=== PATIENT | male | born 1970 | race Caucasian/White ===

== ENCOUNTER 2018-09-02 11:49 | Emergency (ER) | payer MEDICAID ==
[~2018-09-02] VITALS: Ht 167.6 cm; Wt 124.0 kg
[2018-09-02] MEDS ORDERED: MAGNESIUM/ALUMINUM HYDROXIDE/SIMETHICONE 30ML UDC PO STA (13:59)
[2018-09-02] MEDS ORDERED: FAMOTIDINE 20MG TABLET PO ONE (14:00)
[2018-09-02] MEDS ORDERED: ACETAMINOPHEN 325MG TABLET PO ONE (14:00)
[2018-09-02] MEDS ORDERED: ONDANSETRON 4MG ODT PO ONE (14:00)
[2018-09-02 14:26] LABS: BASOPHILS % 0.8 % (0.0-2.0); EOSINOPHILS % 4.4 % (0.0-5.0); HEMATOCRIT. 43.1 % (42.0-52.0); HEMOGLOBIN. 14.1 g/dL (14.0-18.0); LYMPHOCYTES % 18.2 % (20.0-50.0); MEAN CORPUSCULAR HEMOGLOBIN 25.1 pg (28.0-32.0); MEAN CORPUSCULAR VOLUME 76.7 fL (80.0-94.0); MEAN PLATELET VOLUME 8.4 fl (7.4-10.4); MONOCYTES % 9.1 % (2.0-8.0); NEUTROPHILS % 67.5 % (40.0-76.0); PLATELET 219 x1000/uL (130-400); RED BLOOD CELL COUNT 5.62 mill/uL (4.7-6.1); RED CELL DISTRIBUTION WIDTH 15.2 % (11.6-14.6)
[2018-09-02 14:31] LABS: CHLORIDE 103 mEq/L (98-107)
[2018-09-02 16:30] VITALS: BP 180/105
== END 2018-09-02 16:45 | disposition home or self-care (01) ==
LOC: ER 11:49
DX: R10.13 Epigastric pain (principal); I10 Essential (primary) hypertension; R11.2 Nausea with vomiting, unspecified; R19.7 Diarrhea, unspecified; K59.00 Constipation, unspecified; Z98.890 Other specified postprocedural states
CPT/HCPCS: 36415; 80053; 83690; 85025; 99284; Q0162

== ENCOUNTER 2019-08-01 14:37 | Inpatient (IN) | payer OTHER ==
[~2019-08-01] VITALS: Ht 172.7 cm; Wt 131.1 kg
[~2019-08-01 14:37] MED LIST: CLON-457 PO; FURO-152 MT; HYDR12.54 PO; METO100T16 PO
[2019-08-01] MEDS ORDERED: FUROSEMIDE 100MG/10ML VIAL IVP ONE (17:00)
[2019-08-01] MEDS ORDERED: ASPIRIN 81MG TABLET PO ONE (17:00)
[2019-08-01] MEDS ORDERED: NITROGLYCERIN OINT 1GM/INCH UDPKT TD ONE (17:00)
[2019-08-01 17:30] LABS: HEMATOCRIT. 40.6 % (42.0-52.0); HEMOGLOBIN. 13.1 g/dL (14.0-18.0); MEAN CORPUSCULAR HEMOGLOBIN 24.8 pg (28.0-32.0); MEAN CORPUSCULAR VOLUME 76.6 fL (80.0-94.0); MEAN PLATELET VOLUME 8.1 fl (7.4-10.4); PLATELET 284 x1000/uL (130-400); RED CELL DISTRIBUTION WIDTH 17.1 % (11.6-14.6)
[2019-08-01 17:49] LABS: PROTHROMBIN TIME 10.6 sec (9.6-11.0)
[2019-08-01 19:04] LABS: CHLORIDE 103 mEq/L (98-107)
[2019-08-01] MEDS ORDERED: IPRATROPIUM/ALBUTEROL 0.5-3(2.5)MG/3ML NEB HHN PRN (19:30)
[2019-08-01] MEDS ORDERED: NIFEDIPINE XL 60MG TAB PO NR (19:30)
[2019-08-01] MEDS ORDERED: MAGNESIUM/ALUMINUM HYDROXIDE/SIMETHICONE 30ML UDC PO PRN (19:30)
[2019-08-01] MEDS ORDERED: CLONIDINE 0.1MG TABLET PO PRN (19:30)
[2019-08-01] MEDS ORDERED: ACETAMINOPHEN 325MG TABLET PO PRN ×2 (19:30)
[2019-08-01] MEDS ORDERED: DIPHENHYDRAMINE 50MG/ML VIAL IV PRN (19:30)
[2019-08-01] MEDS ORDERED: ONDANSETRON HCL 4MG/2ML INJ IV PRN (19:30)
[2019-08-01] MEDS ORDERED: HYDRALAZINE 20MG/ML VIAL IV PRN (19:30)
[2019-08-01] MEDS ORDERED: GUAIFENESIN 200MG/10ML SUGAR FREE UDC PO PRN (19:30)
[2019-08-01 19:45] LABS: PLATELET ESTIMATE NORMAL
[2019-08-01] MEDS ORDERED: ZOLPIDEM TARTRATE 5MG TABLET PO PRN (21:00)
[2019-08-01] MEDS: ENOXAPARIN 40MG/0.4ML SYR SUBCUT SCH (21:50)
[2019-08-01] MEDS: LISINOPRIL 20MG TABLET PO SCH (21:50)
[2019-08-01] MEDS: SODIUM CHLORIDE 0.9% INJ 3ML FLUSH IVF SCH (21:53)
[2019-08-02] VITALS: BP 174/101
[2019-08-02] MEDS ORDERED: METOLAZONE 10MG TABLET PO SCH (01:00)
[2019-08-02] MEDS: CLONIDINE 0.1MG TABLET PO PRN ×2 (01:34→17:55)
[2019-08-02 04:00] VITALS: BP 165/89
[2019-08-02] MEDS: SODIUM CHLORIDE 0.9% INJ 3ML FLUSH IVF SCH ×3 (06:12→21:47)
[2019-08-02 08:00] VITALS: BP 132/62
[2019-08-02] MEDS ORDERED: FUROSEMIDE 40MG/4ML VIAL IVP SCH (09:00)
[2019-08-02] MEDS: NIFEDIPINE XL 60MG TAB PO SCH (09:16)
[2019-08-02] MEDS: LISINOPRIL 20MG TABLET PO SCH ×2 (09:16→21:23)
[2019-08-02] MEDS: ENOXAPARIN 40MG/0.4ML SYR SUBCUT SCH ×2 (09:16→21:23)
[2019-08-02] MEDS: POTASSIUM CHLORIDE 20MEQ TABLET SR PO SCH (09:18)
[2019-08-02] MEDS ORDERED: PNEUMOCOCCAL 23-VAL P-SAC VAC 0.5 ML IM ONE (12:00)
[2019-08-02 16:00] VITALS: BP 142/101
[2019-08-02] MEDS: FUROSEMIDE 40MG/4ML VIAL IVP SCH (17:56)
[2019-08-02 20:00] VITALS: BP 150/84
[2019-08-02 23:51] LABS: *AMPHETAMINES SCREEN URINE NEGATIVE (NEGATIVE); *BARBITURATES SCREEN URINE NEGATIVE (NEGATIVE); *BENZODIAZEPINES SCREEN URINE NEGATIVE (NEGATIVE); *COCAINE SCREEN URINE NEGATIVE (NEGATIVE); METHADONE URINE SCREEN NEGATIVE (NEGATIVE)
[2019-08-02 23:52] LABS: CANNABINOID URINE SCREEN NEGATIVE (NEGATIVE); OPIATES URINE SCREEN NEGATIVE (NEGATIVE); PHENCYCLIDINE URINE SCREEN NEGATIVE (NEGATIVE)
[2019-08-03] VITALS: BP 121/86
[2019-08-03 04:00] VITALS: BP 142/87
[2019-08-03] MEDS: FUROSEMIDE 40MG/4ML VIAL IVP SCH ×2 (05:58→18:31)
[2019-08-03] MEDS: SODIUM CHLORIDE 0.9% INJ 3ML FLUSH IVF SCH ×3 (06:19→21:04)
[2019-08-03 06:37] LABS: BASOPHILS % 0.5 % (0.0-2.0); EOSINOPHILS % 1.9 % (0.0-5.0); HEMATOCRIT. 43.5 % (42.0-52.0); HEMOGLOBIN. 14.3 g/dL (14.0-18.0); LYMPHOCYTES % 16.6 % (20.0-50.0); MEAN CORPUSCULAR HEMOGLOBIN 24.7 pg (28.0-32.0); MEAN CORPUSCULAR VOLUME 74.8 fL (80.0-94.0); MEAN PLATELET VOLUME 7.6 fl (7.4-10.4); MONOCYTES % 9.8 % (2.0-8.0); NEUTROPHILS % 71.2 % (40.0-76.0); PLATELET 372 x1000/uL (130-400); RED BLOOD CELL COUNT 5.81 mill/uL (4.7-6.1); RED CELL DISTRIBUTION WIDTH 16.9 % (11.6-14.6)
[2019-08-03 06:52] LABS: CHLORIDE 92 mEq/L (98-107)
[2019-08-03 06:58] LABS: PHOSPHORUS 4.8 mg/dL (2.5-4.9)
[2019-08-03 08:00] VITALS: BP 132/81
[2019-08-03] MEDS: NIFEDIPINE XL 60MG TAB PO SCH (08:26)
[2019-08-03] MEDS: LISINOPRIL 20MG TABLET PO SCH ×2 (08:26→21:04)
[2019-08-03] MEDS: POTASSIUM CHLORIDE 20MEQ TABLET SR PO SCH (08:27)
[2019-08-03] MEDS: ENOXAPARIN 40MG/0.4ML SYR SUBCUT SCH ×2 (08:27→21:03)
[2019-08-03] MEDS ORDERED: POTASSIUM CHLORIDE 20MEQ TABLET SR PO NR ×2 (08:45→14:00)
[2019-08-03 10:04] LABS: T4 FREE 1.43 ng/dL (0.76-1.46)
[2019-08-03] MEDS ORDERED: POTASSIUM CHLORIDE INJ 40 MEQ in DEXT 5% WATER 250 ML IV NR (11:00)
[2019-08-03 12:00] VITALS: BP 124/85
[2019-08-03] MEDS ORDERED: POTASSIUM CHLORIDE 20MEQ TABLET SR PO SCH (12:00)
[2019-08-03 16:00] VITALS: BP 120/77
[2019-08-03 16:02] LABS: CREATINE KINASE 62 IU/L (39-308)
[2019-08-03 16:04] LABS: CREATINE KINASE MB FRACTION < 1.0 ng/mL (0.5-3.6)
[2019-08-03 20:00] VITALS: BP 127/75
[2019-08-03 23:35] LABS: CREATINE KINASE 65 IU/L (39-308)
[2019-08-03 23:37] LABS: CREATINE KINASE MB FRACTION < 1.0 ng/mL (0.5-3.6)
[2019-08-04] VITALS: BP 129/72
[2019-08-04 04:00] VITALS: BP 131/88
[2019-08-04] MEDS: SODIUM CHLORIDE 0.9% INJ 3ML FLUSH IVF SCH ×2 (06:06→13:10)
[2019-08-04] MEDS: FUROSEMIDE 40MG/4ML VIAL IVP SCH (06:07)
[2019-08-04 07:42] LABS: CHLORIDE 96 mEq/L (98-107)
[2019-08-04 07:50] LABS: CREATINE KINASE 47 IU/L (39-308)
[2019-08-04 07:52] LABS: CREATINE KINASE MB FRACTION < 1.0 ng/mL (0.5-3.6)
[2019-08-04 08:00] VITALS: BP 129/90
[2019-08-04] MEDS: NIFEDIPINE XL 60MG TAB PO SCH (08:30)
[2019-08-04] MEDS: ENOXAPARIN 40MG/0.4ML SYR SUBCUT SCH (08:30)
[2019-08-04] MEDS: POTASSIUM CHLORIDE 20MEQ TABLET SR PO SCH (08:30)
[2019-08-04] MEDS: LISINOPRIL 20MG TABLET PO SCH (08:31)
[2019-08-04] MEDS ORDERED: POTASSIUM CHLORIDE INJ 40 MEQ in DEXT 5% WATER 250 ML IV SCH (10:00)
[2019-08-04 12:00] VITALS: BP 132/72
[2019-08-04] MEDS ORDERED: POTASSIUM CHLORIDE 20MEQ TABLET SR PO NR (13:00)
[2019-08-04 14:12] VITALS: BP 132/72
== END 2019-08-04 15:35 | disposition home or self-care (01) | DRG 291 ==
LOC: ER 14:37 → 5WST 17:52 → EDBEDREQ 22:41 → ENRESERV 22:43 → ER 23:30
PROVIDERS: ADMIT Internal Medicine; ATTEND Internal Medicine
PROC: 5A09357 Assistance with Respiratory Ventilation, Less than 24 Consecutive Hours, Continuous Positive Airway Pressure (ICD-10-PCS; principal; 2019-08-02)
DX: I11.0 Hypertensive heart disease with heart failure (principal); J96.00 Acute respiratory failure, unspecified whether with hypoxia or hypercapnia; E46 Unspecified protein-calorie malnutrition; R65.10 Systemic inflammatory response syndrome (SIRS) of non-infectious origin without acute organ dysfunction; Z68.43 Body mass index [BMI] 50.0-59.9, adult; Z68.41 Body mass index [BMI] 40.0-44.9, adult; I50.23 Acute on chronic systolic (congestive) heart failure; E66.01 Morbid (severe) obesity due to excess calories; E87.6 Hypokalemia; G47.30 Sleep apnea, unspecified; D72.829 Elevated white blood cell count, unspecified; J45.909 Unspecified asthma, uncomplicated; Z79.899 Other long term (current) drug therapy; Z82.49 Family history of ischemic heart disease and other diseases of the circulatory system
CPT/HCPCS: 36415; 71045; 80048; 80053; 80061; 80305; 82550; 82553; 83036; 83735; 83880; 84100; 84439; 84443; 84484; 85025; 85379; 93005; 93306; 99291; J0360; J1650; J1940; J3480; J7060

== ENCOUNTER 2021-04-07 16:53 | Inpatient (IN) | payer OTHER ==
[~2021-04-07] VITALS: Ht 172.7 cm; Wt 138.9 kg
[2021-04-07] MEDS ORDERED: NITROGLYCERIN OINT 1GM/INCH UDPKT TD ONE (17:45)
[2021-04-07] MEDS ORDERED: FUROSEMIDE 40MG/4ML VIAL IV ONE (17:45)
[2021-04-07] MEDS ORDERED: ASPIRIN 81MG TABLET PO ONE (17:45)
[2021-04-07 18:06] LABS: BASOPHILS % 0.8 % (0.0-2.0); EOSINOPHILS % 2.4 % (0.0-5.0); HEMATOCRIT. 40.4 % (42.0-52.0); HEMOGLOBIN. 12.9 g/dL (14.0-18.0); LYMPHOCYTES % 14.4 % (20.0-50.0); MEAN CORPUSCULAR HEMOGLOBIN 23.9 pg (28.0-32.0); MEAN CORPUSCULAR VOLUME 75.2 fL (80.0-94.0); MEAN PLATELET VOLUME 7.9 fl (7.4-10.4); MONOCYTES % 9.3 % (2.0-8.0); NEUTROPHILS % 73.1 % (40.0-76.0); PLATELET 239 x1000/uL (130-400); RED BLOOD CELL COUNT 5.38 mill/uL (4.7-6.1); RED CELL DISTRIBUTION WIDTH 15.9 % (11.6-14.6)
[2021-04-07 18:14] LABS: CHLORIDE 99 mEq/L (98-107)
[2021-04-07] MEDS ORDERED: DOCUSATE SODIUM 100MG CAPSULE PO PRN (22:00)
[2021-04-07] MEDS ORDERED: NITROGLYCERIN 0.4MG TABLET SL SL PRN (22:00)
[2021-04-07] MEDS ORDERED: IPRATROPIUM/ALBUTEROL 0.5-3(2.5)MG/3ML NEB NEB PRN (22:00)
[2021-04-07] MEDS ORDERED: GUAIFENESIN 200MG/10ML SUGAR FREE UDC PO PRN (22:00)
[2021-04-07] MEDS ORDERED: ACETAMINOPHEN 325MG TABLET PO PRN (22:00)
[2021-04-07] MEDS: ENOXAPARIN 40MG/0.4ML SYR SUBCUT SCH (23:02)
[2021-04-07 23:07] LABS: ETHANOL BLOOD < 10 mg/dL
[2021-04-07 23:09] LABS: TOTAL IRON BINDING CAPACITY 323 ug/dL (250-450)
[2021-04-07 23:10] LABS: CREATINE KINASE 75 IU/L (39-308); LDL CHOLESTEROL 124 mg/dL (5-100)
[2021-04-07 23:11] LABS: CREATINE KINASE MB FRACTION < 1.0 ng/mL (0.5-3.6); HDL CHOLESTEROL 36 mg/dL (40-59)
[2021-04-07 23:23] LABS: FOLIC ACID (FOLATE) SERUM 8.5 ng/mL (>5.38)
[2021-04-08 05:50] LABS: BASOPHILS % 0.2 % (0.0-2.0); EOSINOPHILS % 3.3 % (0.0-5.0); HEMATOCRIT. 38.2 % (42.0-52.0); HEMOGLOBIN. 12.3 g/dL (14.0-18.0); LYMPHOCYTES % 18.8 % (20.0-50.0); MEAN CORPUSCULAR VOLUME 74.5 fL (80.0-94.0); MEAN PLATELET VOLUME 7.7 fl (7.4-10.4); MONOCYTES % 11.8 % (2.0-8.0); NEUTROPHILS % 65.9 % (40.0-76.0); PLATELET 227 x1000/uL (130-400); RED BLOOD CELL COUNT 5.14 mill/uL (4.7-6.1); RED CELL DISTRIBUTION WIDTH 15.5 % (11.6-14.6)
[2021-04-08 06:06] LABS: CHLORIDE 100 mEq/L (98-107)
[2021-04-08 06:11] LABS: PHOSPHORUS 3.8 mg/dL (2.5-4.9)
[2021-04-08 06:13] LABS: CREATINE KINASE 64 IU/L (39-308)
[2021-04-08 06:16] LABS: CREATINE KINASE MB FRACTION < 1.0 ng/mL (0.5-3.6)
[2021-04-08] MEDS: CARVEDILOL 3.125 MG TABLET PO SCH ×2 (06:25→17:46)
[2021-04-08 08:18] LABS: *AMPHETAMINES SCREEN URINE NEGATIVE (NEGATIVE); *BARBITURATES SCREEN URINE NEGATIVE (NEGATIVE); *BENZODIAZEPINES SCREEN URINE NEGATIVE (NEGATIVE); *COCAINE SCREEN URINE NEGATIVE (NEGATIVE)
[2021-04-08 08:19] LABS: CANNABINOID URINE SCREEN NEGATIVE (NEGATIVE); OPIATES URINE SCREEN NEGATIVE (NEGATIVE); PHENCYCLIDINE URINE SCREEN NEGATIVE (NEGATIVE)
[2021-04-08] MEDS: FUROSEMIDE 40MG/4ML VIAL IVP SCH ×2 (09:26→20:56)
[2021-04-08] MEDS: ASPIRIN 325MG EC TABLET PO SCH (09:29)
[2021-04-08] MEDS: FAMOTIDINE 20MG TABLET PO SCH ×2 (09:29→20:57)
[2021-04-08] MEDS: ASCORBIC ACID 500 MG TABLET PO SCH ×2 (09:29→20:57)
[2021-04-08 12:05] VITALS: BP 174/110
[2021-04-08] MEDS: ZINC SULFATE 220 MG ( 50 ) CAPSULE PO SCH (12:20)
[2021-04-08] MEDS: SPIRONOLACTONE 25MG TABLET PO SCH ×2 (12:20→20:57)
[2021-04-08] MEDS: CHOLECALCIFEROL (D3) 1000 UNIT TABLET PO SCH (12:20)
[2021-04-08] MEDS: CLONIDINE 0.1MG TABLET PO PRN ×2 (12:21→18:52)
[2021-04-08] MEDS: LISINOPRIL 20MG TABLET PO SCH ×2 (12:21→20:57)
[2021-04-08] MEDS: ENOXAPARIN 40MG/0.4ML SYR SUBCUT SCH ×2 (12:59→20:58)
[2021-04-08 13:46] VITALS: BP 174/110
[2021-04-08] MEDS ORDERED: CLON-457 MT (14:25)
[2021-04-08] MEDS ORDERED: POTA20TA82 MT (14:25)
[2021-04-08] MEDS ORDERED: LISI20TA31 MT (14:25)
[2021-04-08] MEDS ORDERED: NIFE-32 PO (14:25)
[2021-04-08] MEDS ORDERED: METO100T16 MT (14:25)
[2021-04-08] MEDS ORDERED: FURO80TA87 PO (14:25)
[2021-04-08 16:00] VITALS: BP 168/101
[2021-04-08 20:00] VITALS: BP 168/101
[2021-04-09] VITALS: BP 170/104
[2021-04-09 04:00] VITALS: BP 174/99
[2021-04-09] MEDS: CARVEDILOL 3.125 MG TABLET PO SCH ×2 (05:26→17:56)
[2021-04-09] MEDS: CLONIDINE 0.1MG TABLET PO PRN ×4 (05:27→22:28)
[2021-04-09 08:00] VITALS: BP 179/113
[2021-04-09] MEDS: CHOLECALCIFEROL (D3) 1000 UNIT TABLET PO SCH (09:40)
[2021-04-09] MEDS: ZINC SULFATE 220 MG ( 50 ) CAPSULE PO SCH (09:40)
[2021-04-09] MEDS: FUROSEMIDE 40MG/4ML VIAL IVP SCH ×2 (09:40→21:20)
[2021-04-09] MEDS: FAMOTIDINE 20MG TABLET PO SCH ×3 (09:41→21:18)
[2021-04-09] MEDS: LISINOPRIL 20MG TABLET PO SCH ×2 (09:41→21:19)
[2021-04-09] MEDS: ASPIRIN 325MG EC TABLET PO SCH (09:41)
[2021-04-09] MEDS: ASCORBIC ACID 500 MG TABLET PO SCH ×2 (09:41→21:18)
[2021-04-09] MEDS: ENOXAPARIN 40MG/0.4ML SYR SUBCUT SCH ×2 (09:49→21:18)
[2021-04-09] MEDS: SPIRONOLACTONE 25MG TABLET PO SCH ×2 (09:50→21:19)
[2021-04-09 12:00] VITALS: BP 177/103
[2021-04-09 16:00] VITALS: BP 171/105
[2021-04-09] MEDS: ONDANSETRON HCL 4MG/2ML INJ IV PRN (17:56)
[2021-04-09 20:00] VITALS: BP 192/123
[2021-04-09] MEDS ORDERED: NA PHOS,M-B/NA PHOS,DI-BA ENEMA 118ML PR NR (20:15)
[2021-04-09] MEDS: ZOLPIDEM TARTRATE 5MG TABLET PO PRN (21:20)
[2021-04-09] MEDS: ACETAMINOPHEN 325MG TABLET PO PRN (21:36)
[2021-04-09 22:05] LABS: METHADONE URINE SCREEN NEGATIVE (NEGATIVE)
[2021-04-10] VITALS: BP 201/123
[2021-04-10 04:00] VITALS: BP 167/137
[2021-04-10] MEDS: CARVEDILOL 3.125 MG TABLET PO SCH ×2 (06:50→18:03)
[2021-04-10 08:00] VITALS: BP 150/88
[2021-04-10] MEDS: FUROSEMIDE 40MG/4ML VIAL IVP SCH ×2 (09:48→21:14)
[2021-04-10] MEDS: FAMOTIDINE 20MG TABLET PO SCH ×2 (09:50→21:13)
[2021-04-10] MEDS: LISINOPRIL 20MG TABLET PO SCH ×2 (09:50→21:14)
[2021-04-10] MEDS: SPIRONOLACTONE 25MG TABLET PO SCH ×2 (09:50→21:13)
[2021-04-10] MEDS: ENOXAPARIN 40MG/0.4ML SYR SUBCUT SCH ×2 (09:50→21:14)
[2021-04-10] MEDS: ASPIRIN 325MG EC TABLET PO SCH (09:50)
[2021-04-10 12:00] VITALS: BP 141/53
[2021-04-10 13:15] LABS: BASOPHILS % 0.2 % (0.0-2.0); EOSINOPHILS % 1.7 % (0.0-5.0); LYMPHOCYTES % 10.5 % (20.0-50.0); MEAN CORPUSCULAR HEMOGLOBIN 24.4 pg (28.0-32.0); MEAN CORPUSCULAR VOLUME 75.2 fL (80.0-94.0); MEAN PLATELET VOLUME 8.3 fl (7.4-10.4); NEUTROPHILS % 79.6 % (40.0-76.0); PLATELET 287 x1000/uL (130-400); RED BLOOD CELL COUNT 5.87 mill/uL (4.7-6.1); RED CELL DISTRIBUTION WIDTH 15.5 % (11.6-14.6)
[2021-04-10] MEDS ORDERED: IOHEXOL-300 100 ML BOTTLE ONE ×2 (13:26→15:20)
[2021-04-10 13:38] LABS: HEMATOCRIT. 44.1 % (42.0-52.0); HEMOGLOBIN. 14.3 g/dL (14.0-18.0)
[2021-04-10 13:50] LABS: CHLORIDE 97 mEq/L (98-107)
[2021-04-10] MEDS: ZINC SULFATE 220 MG ( 50 ) CAPSULE PO SCH (14:04)
[2021-04-10] MEDS: CHOLECALCIFEROL (D3) 1000 UNIT TABLET PO SCH (14:04)
[2021-04-10] MEDS: ASCORBIC ACID 500 MG TABLET PO SCH ×2 (14:04→21:13)
[2021-04-10 16:00] VITALS: BP 174/110
[2021-04-10] MEDS: ONDANSETRON HCL 4MG/2ML INJ IV PRN (16:13)
[2021-04-10] MEDS: ACETAMINOPHEN 325MG TABLET PO PRN ×2 (16:14→21:19)
[2021-04-10] MEDS: CLONIDINE 0.1MG TABLET PO PRN (16:15)
[2021-04-10 20:00] VITALS: BP 173/98
[2021-04-10] MEDS: ZOLPIDEM TARTRATE 5MG TABLET PO PRN (21:13)
[2021-04-11] VITALS (7 sets, daily range): BP systolic 119–191; BP diastolic 85–114
[2021-04-11] MEDS: CARVEDILOL 3.125 MG TABLET PO SCH ×2 (05:07→18:04)
[2021-04-11] MEDS: ACETAMINOPHEN 325MG TABLET PO PRN (10:09)
[2021-04-11] MEDS: LISINOPRIL 20MG TABLET PO SCH ×2 (10:10→21:17)
[2021-04-11] MEDS: FAMOTIDINE 20MG TABLET PO SCH ×2 (10:10→21:17)
[2021-04-11] MEDS: ENOXAPARIN 40MG/0.4ML SYR SUBCUT SCH ×2 (10:11→21:17)
[2021-04-11] MEDS: CHOLECALCIFEROL (D3) 1000 UNIT TABLET PO SCH (10:11)
[2021-04-11] MEDS: ASCORBIC ACID 500 MG TABLET PO SCH ×2 (10:11→21:18)
[2021-04-11] MEDS: ONDANSETRON HCL 4MG/2ML INJ IV PRN (10:12)
[2021-04-11] MEDS: FUROSEMIDE 40MG/4ML VIAL IVP SCH ×2 (10:12→21:17)
[2021-04-11] MEDS: SPIRONOLACTONE 25MG TABLET PO SCH ×2 (10:12→21:17)
[2021-04-11] MEDS: ASPIRIN 325MG EC TABLET PO SCH (10:15)
[2021-04-11] MEDS: ZINC SULFATE 220 MG ( 50 ) CAPSULE PO SCH (10:15)
[2021-04-11] MEDS: MAGNESIUM/ALUMINUM HYDROXIDE/SIMETHICONE 30ML UDC PO PRN ×2 (12:15→18:04)
[2021-04-11] MEDS: CLONIDINE 0.1MG TABLET PO PRN (12:15)
[2021-04-12] VITALS: BP 140/93
[2021-04-12 04:00] VITALS: BP 156/100
[2021-04-12] MEDS: CARVEDILOL 3.125 MG TABLET PO SCH (05:24)
[2021-04-12 08:00] VITALS: BP 158/88
[2021-04-12] MEDS: ASPIRIN 325MG EC TABLET PO SCH (09:32)
[2021-04-12] MEDS: CHOLECALCIFEROL (D3) 1000 UNIT TABLET PO SCH (09:33)
[2021-04-12] MEDS: LISINOPRIL 20MG TABLET PO SCH (09:33)
[2021-04-12] MEDS: FAMOTIDINE 20MG TABLET PO SCH (09:33)
[2021-04-12] MEDS: ASCORBIC ACID 500 MG TABLET PO SCH (09:33)
[2021-04-12] MEDS: ZINC SULFATE 220 MG ( 50 ) CAPSULE PO SCH (09:33)
[2021-04-12] MEDS: ENOXAPARIN 40MG/0.4ML SYR SUBCUT SCH (09:34)
[2021-04-12] MEDS: FUROSEMIDE 40MG/4ML VIAL IVP SCH (09:34)
[2021-04-12] MEDS: SPIRONOLACTONE 25MG TABLET PO SCH (09:34)
[2021-04-12 12:00] VITALS: BP 166/108
[2021-04-12 17:01] VITALS: BP 158/88
== END 2021-04-12 16:35 | disposition home or self-care (01) | DRG 194 ==
LOC: ER 17:04 → EDBEDREQ 17:53 → MICUSO 20:37 → EDBEDREQ 20:44 → EDBEDREQTM 20:44 → 8WST 04-08 11:13
PROVIDERS: ADMIT Internal Medicine; ATTEND Internal Medicine
DX: I11.0 Hypertensive heart disease with heart failure (principal); N17.0 Acute kidney failure with tubular necrosis; E44.1 Mild protein-calorie malnutrition; E83.51 Hypocalcemia; D63.8 Anemia in other chronic diseases classified elsewhere; I16.1 Hypertensive emergency; J44.9 Chronic obstructive pulmonary disease, unspecified; E66.9 Obesity, unspecified; I25.10 Atherosclerotic heart disease of native coronary artery without angina pectoris; Z20.822 Contact with and (suspected) exposure to COVID-19; Z79.899 Other long term (current) drug therapy; Z68.42 Body mass index [BMI] 45.0-49.9, adult; I50.33 Acute on chronic diastolic (congestive) heart failure
CPT/HCPCS: 36415; 71045; 74177; 80053; 80061; 80305; 80320; 82550; 82553; 82607; 82746; 83036; 83540; 83550; 83735; 83880; 84100; 84443; 84484; 85025; 87426; 93005; 93306; 93970; 94660; 99285; J1650; J1940; J2405; Q9967; G0480

== ENCOUNTER 2021-04-18 14:31 | Inpatient (IN) | payer OTHER, MEDICAID ==
[~2021-04-18] VITALS: Ht 172.7 cm; Wt 133.4 kg
[~2021-04-18 14:31] MED LIST changes: +CLON-457 MT; -CLON-457 PO; -FURO-152 MT; +FURO80TA87 PO; -HYDR12.54 PO; +LISI20TA31 MT; +METO100T16 MT; -METO100T16 PO; +NIFE-32 PO; +POTA20TA82 MT
[2021-04-18 17:28] LABS: BASOPHILS % 0.4 % (0.0-2.0); EOSINOPHILS % 1.4 % (0.0-5.0); HEMATOCRIT. 41.1 % (42.0-52.0); HEMOGLOBIN. 13.6 g/dL (14.0-18.0); LYMPHOCYTES % 13.5 % (20.0-50.0); MEAN CORPUSCULAR HEMOGLOBIN 24.7 pg (28.0-32.0); MEAN CORPUSCULAR VOLUME 74.6 fL (80.0-94.0); MONOCYTES % 8.6 % (2.0-8.0); NEUTROPHILS % 76.1 % (40.0-76.0); PLATELET 270 x1000/uL (130-400); RED BLOOD CELL COUNT 5.51 mill/uL (4.7-6.1); RED CELL DISTRIBUTION WIDTH 15.4 % (11.6-14.6)
[2021-04-18 17:33] LABS: CHLORIDE 98 mEq/L (98-107)
[2021-04-18] MEDS ORDERED: FUROSEMIDE 40MG/4ML VIAL IV ONE (20:00)
[2021-04-18 23:56] LABS: BASOPHILS % 1.1 % (0.0-2.0); EOSINOPHILS % 2.7 % (0.0-5.0); HEMATOCRIT. 41.8 % (42.0-52.0); HEMOGLOBIN. 13.7 g/dL (14.0-18.0); LYMPHOCYTES % 17.8 % (20.0-50.0); MEAN CORPUSCULAR HEMOGLOBIN 24.3 pg (28.0-32.0); MEAN CORPUSCULAR VOLUME 74.5 fL (80.0-94.0); MEAN PLATELET VOLUME 7.9 fl (7.4-10.4); MONOCYTES % 8.8 % (2.0-8.0); NEUTROPHILS % 69.6 % (40.0-76.0); PLATELET 272 x1000/uL (130-400); RED BLOOD CELL COUNT 5.61 mill/uL (4.7-6.1); RED CELL DISTRIBUTION WIDTH 15.3 % (11.6-14.6)
[2021-04-19 00:05] LABS: CHLORIDE 105 mEq/L (98-107)
[2021-04-19 08:00] VITALS: BP 166/77
[2021-04-19] MEDS ORDERED: ACETAMINOPHEN 325MG TABLET PO PRN (08:30)
[2021-04-19] MEDS ORDERED: ONDANSETRON HCL 4MG/2ML INJ IV PRN (08:30)
[2021-04-19 08:37] VITALS: BP 166/77
[2021-04-19] MEDS: NIFEDIPINE XL 60MG TAB PO SCH (10:37)
[2021-04-19] MEDS: FUROSEMIDE 100MG/10ML VIAL IVP SCH ×2 (10:37→17:09)
[2021-04-19 12:00] VITALS: BP 169/112
[2021-04-19] MEDS: POTASSIUM CHLORIDE 20MEQ TABLET SR PO SCH (13:13)
[2021-04-19] MEDS: CLONIDINE 0.1MG TABLET PO SCH ×2 (13:13→21:53)
[2021-04-19 16:00] VITALS: BP 152/85
[2021-04-19] MEDS: LISINOPRIL 20MG TABLET PO SCH (17:10)
[2021-04-19] MEDS: ENOXAPARIN 40MG/0.4ML SYR SUBCUT SCH (17:10)
[2021-04-19 20:00] VITALS: BP 160/98
[2021-04-19] MEDS: METOPROLOL TARTRATE 100MG TABLET PO SCH (21:52)
[2021-04-20] VITALS: BP 123/82
[2021-04-20 04:00] VITALS: BP 162/108
[2021-04-20] MEDS: FUROSEMIDE 100MG/10ML VIAL IVP SCH (06:42)
[2021-04-20] MEDS: ENOXAPARIN 40MG/0.4ML SYR SUBCUT SCH (06:42)
[2021-04-20] MEDS: CLONIDINE 0.1MG TABLET PO SCH (06:42)
[2021-04-20 08:00] VITALS: BP 139/90
[2021-04-20] MEDS: POTASSIUM CHLORIDE 20MEQ TABLET SR PO SCH (08:22)
[2021-04-20] MEDS: METOPROLOL TARTRATE 100MG TABLET PO SCH (08:23)
[2021-04-20] MEDS: LISINOPRIL 20MG TABLET PO SCH (08:23)
[2021-04-20] MEDS: NIFEDIPINE XL 60MG TAB PO SCH (08:23)
[2021-04-20] MEDS ORDERED: FURO80TA87 MT (11:32)
[2021-04-20] MEDS ORDERED: METO100T16 MT (11:32)
[2021-04-20] MEDS ORDERED: NIFE-32 PO (11:32)
[2021-04-20] MEDS ORDERED: CLON0.1T MT (11:32)
[2021-04-20 13:02] VITALS: BP 129/90
== END 2021-04-20 13:45 | disposition home or self-care (01) | DRG 291 ==
LOC: ER 14:58 → MICUSO 22:21 → 8WST 04-19 09:02
PROVIDERS: ADMIT Internal Medicine; ATTEND Internal Medicine
DX: I11.0 Hypertensive heart disease with heart failure (principal); I50.33 Acute on chronic diastolic (congestive) heart failure; Z68.41 Body mass index [BMI] 40.0-44.9, adult; E66.01 Morbid (severe) obesity due to excess calories; J45.909 Unspecified asthma, uncomplicated; Z20.822 Contact with and (suspected) exposure to COVID-19; Z71.3 Dietary counseling and surveillance
CPT/HCPCS: 36415; 71045; 80053; 83880; 84484; 85025; 87426; 93005; 99285; J1650; J1940

== ENCOUNTER 2023-11-20 10:35 | Emergency (ER) | payer OTHER ==
[~2023-11-20] VITALS: Ht 170.2 cm; Wt 131.0 kg
[~2023-11-20 10:35] MED LIST changes: +ALBU6.7H15 INH; -CLON-457 MT; +CLON0.3T PO; -LISI20TA31 MT; -METO100T16 MT; +METO100T16 PO; -NIFE-32 PO; +POTA-205 MT; -POTA20TA82 MT; +SPIR25TA6 PO
[2023-11-20 10:44] VITALS: O2SAT 97
[2023-11-20 10:47] VITALS: BP 146/88; PULSE 99; RESP 16; TEMP 98.2; O2SAT 96
[2023-11-20 11:09] LABS: CLARITY URINE CLOUDY (CLEAR); COLOR URINE ORANGE (YELLOW); GLUCOSE URINE NEGATIVE (NEGATIVE); KETONES URINE NEGATIVE (NEGATIVE); LEUKOCYTE ESTERASE URINE 2+ (NEGATIVE); NITRITE URINE NEGATIVE (NEGATIVE); OCCULT BLOOD URINE 3+ (NEGATIVE); PROTEIN URINE 2+ (NEGATIVE); SPECIFIC GRAVITY URINE 1.014 (1.005-1.030)
[2023-11-20 11:34] LABS: BACTERIA URINE TRACE; RBC URINE TNTC /hpf (0-2); SQUAMOUS EPITHELIAL CELL URINE RARE /lpf (RARE/1+); WBC URINE 25-50 /hpf (0-2); YEAST URINE NONE SEEN
[2023-11-20] MEDS ORDERED: CEFP200T13 MT (13:44)
== END 2023-11-20 14:28 | disposition home or self-care (01) ==
LOC: ER 10:49
DX: R32 Unspecified urinary incontinence (principal); I11.0 Hypertensive heart disease with heart failure; I50.9 Heart failure, unspecified; J45.909 Unspecified asthma, uncomplicated; Z98.890 Other specified postprocedural states; Z79.899 Other long term (current) drug therapy
CPT/HCPCS: 81003; 87077; 87186; 99283